=== PATIENT | female | born 1960 | race Caucasian/White ===

== ENCOUNTER 2021-08-11 12:50 | Emergency (ER) | payer OTHER ==
[2021-08-11] MEDS ORDERED: Sodium Chloride 0.9% 10 ML Syringe FLUSH PRN (12:52)
[2021-08-11] MEDS ORDERED: Sodium Chloride 0.9% 2.5 ML Syringe FLUSH PRN (12:52)
[2021-08-11] MEDS ORDERED: Sodium Chloride 0.9% 1,000 ML IV ONE (14:45)
[2021-08-11] MEDS ORDERED: Ondansetron 4 MG/2 ML SDV IVPUSH ONE (14:45)
[2021-08-11 15:25] LABS: BLOOD UREA NITROGEN,BUN 8 mg/dL (7.0-18.0); CARBON DIOXIDE,CO2 24.7 mmol/L (21.0-32.0); CHLORIDE,CL 101 mmol/L (98-107); GLUCOSE RANDOM 118 mg/dL (74-106); LIPASE 124 U/L (73-393); POTASSIUM,K 3.7 mmol/L (3.5-5.1); SODIUM,NA 138 mmol/L (136-145)
[2021-08-11] MEDS ORDERED: Tetracaine HCl/PF 0.5% 4 ML Bottle EYERT ONE (15:30)
[2021-08-11] MEDS ORDERED: Morphine 2 MG/ML SYRINGE IVPUSH ONE (15:39)
[2021-08-11] MEDS ORDERED: Erythromycin Base 0.5% Ophth Oint 1 GM Tube EYERT ONE (15:40)
== END 2021-08-11 17:30 | disposition home or self-care (01) ==
LOC: MW.ED 12:50
DX: S05.01XA Injury of conjunctiva and corneal abrasion without foreign body, right eye, initial encounter (principal); K52.9 Noninfective gastroenteritis and colitis, unspecified; Z20.822 Contact with and (suspected) exposure to COVID-19; W22.8XXA Striking against or struck by other objects, initial encounter
CPT/HCPCS: 36415; 80053; 81001; 83690; 85025; 87635; 87804; 96374; 96375; 99284; A9270; J2270; J2405; J7030; U0002

== ENCOUNTER 2021-08-18 09:36 | Inpatient (IN) | payer OTHER ==
[2021-08-18] MEDS ORDERED: Ondansetron 4 MG/2 ML SDV IVPUSH ONE (09:51)
[2021-08-18] MEDS ORDERED: Sodium Chloride 0.9% 1,000 ML IV SCH (10:00)
[2021-08-18] MEDS ORDERED: Sodium Chloride 0.9% 1,000 ML IV STA (10:02)
[2021-08-18] MEDS ORDERED: fentaNYL 50 MCG/ML SDV IVPUSH ONE ×2 (10:47→13:21)
[2021-08-18 11:01] LABS: BLOOD UREA NITROGEN,BUN 11 mg/dL (7.0-18.0); CARBON DIOXIDE,CO2 28.3 mmol/L (21.0-32.0); CHLORIDE,CL 100 mmol/L (98-107); GLUCOSE RANDOM 100 mg/dL (74-106); LIPASE 138 U/L (73-393); POTASSIUM,K 3.9 mmol/L (3.5-5.1); SODIUM,NA 139 mmol/L (136-145)
[2021-08-18] MEDS ORDERED: Iopamidol 755 MG/ML 500 ML Multipack Bottle IVPUSH STA (11:56)
[2021-08-18] MEDS ORDERED: Diatrizoate Meglumine/Diatrizoate Sodium 37% 30 ML Bottle PO ONE (13:44)
[2021-08-18] MEDS ORDERED: Piperacillin/Tazobactam 4.5 GM in Sodium Chloride 0.9% 100 ML IV ONE (17:32)
[2021-08-18] MEDS ORDERED: Bupivacaine 25%/EPINEPHrine/PF 30 ML ONE (18:32)
[2021-08-18] MEDS ORDERED: Octyl 2-Cyanoacrylate 1 Tube ONE (18:32)
[2021-08-18] MEDS ORDERED: Gentamicin 420 MG in Sodium Chloride 0.9% 100 ML IV ONE (18:45)
[2021-08-18] MEDS ORDERED: Propofol 200 MG/20 ML SDV ONE (19:54)
[2021-08-18] MEDS ORDERED: fentaNYL 250 MCG/5 ML SDV ONE ×2 (19:54→20:27)
[2021-08-18] MEDS ORDERED: fentaNYL 100 MCG/2 ML SDV ONE ×3 (19:55→21:01)
[2021-08-18] MEDS ORDERED: Ketamine 500 mg/10 ML MDV ONE (20:41)
[2021-08-18] MEDS ORDERED: Naloxone 0.4 MG/ML SDV IVPUSH PRN (21:20)
[2021-08-18] MEDS ORDERED: fentaNYL 100 MCG/2 ML SDV IVPUSH PRN (21:20)
[2021-08-18] MEDS ORDERED: Ondansetron 4 MG/2 ML SDV IVPUSH PRN (21:20)
[2021-08-18] MEDS ORDERED: Morphine 4 MG/ML VIAL IVPUSH PRN (21:20)
[2021-08-18] MEDS ORDERED: Metoclopramide 10 MG/2 ML SDV IVPUSH PRN (21:20)
[2021-08-18] MEDS ORDERED: Rocuronium Bromide 50 MG/5 ML Syringe ONE ×2 (22:00→23:25)
[2021-08-18] MEDS ORDERED: HYDROmorphone 2 MG/ML Syringe ONE (23:33)
[2021-08-19] MEDS ORDERED: HYDROmorphone 2 MG/ML Syringe ONE (00:03)
[2021-08-19] MEDS ORDERED: Naloxone 0.4 MG/ML SDV IVPUSH PRN (00:22)
[2021-08-19] MEDS ORDERED: Piperacillin/Tazobactam 3.375 GM in Sodium Chloride 0.9% 50 ML IV SCH (00:30)
[2021-08-19] MEDS ORDERED: Lactated Ringers 1,000 ML IV SCH (00:30)
[2021-08-19] MEDS: HYDROmorphone 1 MG/ML Syringe IVPUSH PRN ×2 (00:35→00:45)
[2021-08-19] MEDS ORDERED: Morphine Sulfate in 0.9 % NaCl 50 MG/50 ML PCA Bag IV SCH (00:40)
[2021-08-19 02:07] LABS: BLOOD UREA NITROGEN,BUN 8 mg/dL (7.0-18.0); CARBON DIOXIDE,CO2 24.7 mmol/L (21.0-32.0); CHLORIDE,CL 104 mmol/L (98-107); GLUCOSE RANDOM 168 mg/dL (74-106); POTASSIUM,K 3.9 mmol/L (3.5-5.1); SODIUM,NA 139 mmol/L (136-145)
[2021-08-19] MEDS: Lactated Ringers 1,000 ML IV SCH ×3 (03:29→21:09)
[2021-08-19] MEDS: Ondansetron 4 MG/2 ML SDV IVPUSH PRN (04:20)
[2021-08-19] MEDS: Piperacillin/Tazobactam 3.375 GM in Sodium Chloride 0.9% 50 ML IV SCH ×3 (08:22→20:23)
[2021-08-19] MEDS: Pantoprazole 40 MG in Sodium Chloride 0.9% 10 ML IVPUSH SCH (08:23)
[2021-08-19] MEDS: Morphine Sulfate in 0.9 % NaCl 50 MG/50 ML PCA Bag IV SCH (12:51)
[2021-08-20] MEDS: Piperacillin/Tazobactam 3.375 GM in Sodium Chloride 0.9% 50 ML IV SCH ×4 (02:19→20:41)
[2021-08-20] MEDS: Lactated Ringers 1,000 ML IV SCH ×3 (05:11→15:33)
[2021-08-20] MEDS ORDERED: Morphine 2 MG/ML SYRINGE IVPUSH PRN (06:37)
[2021-08-20] MEDS: Morphine Sulfate in 0.9 % NaCl 50 MG/50 ML PCA Bag IV SCH (07:29)
[2021-08-20 07:48] LABS: BLOOD UREA NITROGEN,BUN 6 mg/dL (7.0-18.0); CARBON DIOXIDE,CO2 27.1 mmol/L (21.0-32.0); CHLORIDE,CL 102 mmol/L (98-107); GLUCOSE RANDOM 109 mg/dL (74-106); POTASSIUM,K 3.7 mmol/L (3.5-5.1); SODIUM,NA 138 mmol/L (136-145)
[2021-08-20] MEDS: Pantoprazole 40 MG in Sodium Chloride 0.9% 10 ML IVPUSH SCH (08:56)
[2021-08-20] MEDS: Ondansetron 4 MG/2 ML SDV IVPUSH PRN ×2 (15:16→22:16)
[2021-08-20] MEDS ORDERED: Morphine Sulfate in 0.9 % NaCl 50 MG/50 ML PCA Bag IV SCH (17:45)
[2021-08-21] MEDS: Piperacillin/Tazobactam 3.375 GM in Sodium Chloride 0.9% 50 ML IV SCH ×4 (01:50→20:20)
[2021-08-21] MEDS: Lactated Ringers 1,000 ML IV SCH (06:59)
[2021-08-21 07:59] LABS: BLOOD UREA NITROGEN,BUN 7 mg/dL (7.0-18.0); CARBON DIOXIDE,CO2 23.8 mmol/L (21.0-32.0); CHLORIDE,CL 100 mmol/L (98-107); GLUCOSE RANDOM 128 mg/dL (74-106); POTASSIUM,K 3.7 mmol/L (3.5-5.1); SODIUM,NA 139 mmol/L (136-145)
[2021-08-21] MEDS: Pantoprazole 40 MG in Sodium Chloride 0.9% 10 ML IVPUSH SCH (08:05)
[2021-08-21] MEDS: Ondansetron 4 MG/2 ML SDV IVPUSH PRN ×2 (08:05→16:40)
[2021-08-22] MEDS: Gabapentin 300 MG Cap PO SCH ×5 (00:31→23:38)
[2021-08-22] MEDS: Ondansetron 4 MG/2 ML SDV IVPUSH PRN ×3 (00:40→14:54)
[2021-08-22] MEDS: Piperacillin/Tazobactam 3.375 GM in Sodium Chloride 0.9% 50 ML IV SCH ×4 (01:34→19:55)
[2021-08-22] MEDS: Lactated Ringers 1,000 ML IV SCH ×2 (04:50→21:15)
[2021-08-22] MEDS ORDERED: Metoclopramide 10 MG Tab PO PRN (10:00)
[2021-08-22] MEDS ORDERED: Docusate Sodium 100 MG Cap PO PRN (10:00)
[2021-08-22] MEDS ORDERED: Lactated Ringers 1,000 ML IV SCH (13:00)
[2021-08-22] MEDS ORDERED: Acetaminophen/oxyCODONE 325-5 MG Tab PO PRN (13:01)
[2021-08-22] MEDS: Pantoprazole 40 MG in Sodium Chloride 0.9% 10 ML IVPUSH SCH (13:44)
[2021-08-22] MEDS: Simethicone 80 MG Tab.Chew PO PRN ×2 (14:54→21:27)
[2021-08-22 16:13] LABS: BLOOD UREA NITROGEN,BUN 7 mg/dL (7.0-18.0); CARBON DIOXIDE,CO2 29.4 mmol/L (21.0-32.0); CHLORIDE,CL 101 mmol/L (98-107); GLUCOSE RANDOM 127 mg/dL (74-106); POTASSIUM,K 3.3 mmol/L (3.5-5.1); SODIUM,NA 137 mmol/L (136-145)
[2021-08-22] MEDS: Metoclopramide 10 MG Tab PO PRN (17:26)
[2021-08-23] MEDS: Piperacillin/Tazobactam 3.375 GM in Sodium Chloride 0.9% 50 ML IV SCH ×2 (01:44→08:07)
[2021-08-23] MEDS: Ondansetron 4 MG/2 ML SDV IVPUSH PRN ×2 (05:00→12:13)
[2021-08-23] MEDS: Gabapentin 300 MG Cap PO SCH ×2 (06:46→12:11)
[2021-08-23] MEDS: Simethicone 80 MG Tab.Chew PO PRN (08:06)
[2021-08-23] MEDS: Pantoprazole 40 MG in Sodium Chloride 0.9% 10 ML IVPUSH SCH (08:07)
[2021-08-23 09:13] LABS: BLOOD UREA NITROGEN,BUN 7 mg/dL (7.0-18.0); CARBON DIOXIDE,CO2 28.5 mmol/L (21.0-32.0); CHLORIDE,CL 100 mmol/L (98-107); GLUCOSE RANDOM 116 mg/dL (74-106); POTASSIUM,K 3.6 mmol/L (3.5-5.1); SODIUM,NA 141 mmol/L (136-145)
[2021-08-23] MEDS: Lactated Ringers 1,000 ML IV SCH (11:17)
[2021-08-23] MEDS: Metoclopramide 10 MG Tab PO PRN (12:12)
== END 2021-08-23 12:35 | DRG 340 ==
LOC: MW.ED 09:36 → MW.MS 17:33 → MW.SDS 17:33 → MW.ED 19:10 → MW.MS 08-19 00:12 → MW.SDS 08-19 00:12
PROVIDERS: ADMIT Surgery; ATTEND Surgery
PROC: 0DTJ0ZZ Resection of Appendix, Open Approach (ICD-10-PCS; principal; 2021-08-19)
PROC: 0WJG4ZZ Inspection of Peritoneal Cavity, Percutaneous Endoscopic Approach (ICD-10-PCS; 2021-08-19)
DX: K35.33 Acute appendicitis with perforation, localized peritonitis, and gangrene, with abscess (principal); E78.00 Pure hypercholesterolemia, unspecified; Z90.49 Acquired absence of other specified parts of digestive tract; Z96.659 Presence of unspecified artificial knee joint; Z20.822 Contact with and (suspected) exposure to COVID-19
CPT/HCPCS: 00840; 36415; 71045; 71045-26; 74018; 74018-26; 74176; 74176-26; 74177; 74177-26; 80053; 80170; 81003; 83690; 85025; 93005; 96365; 96375; 96376; 99285-25; A9270-GY; C9113; J0131; J1170; J1580; J2270; J2405; J2543; J2704; J3010; J7030; J7120; Q9963; Q9967; U0002

== ENCOUNTER 2024-08-07 17:01 | Emergency (ER) | payer BC, OTHER ==
[2024-08-07] MEDS: Diphtheria,Pertussis(Acell),Tetanus Vaccine 0.5 ML Syringe IM ONE (18:32)
== END 2024-08-07 19:14 | disposition home or self-care (01) ==
LOC: MW.ED 17:01
DX: S61.253A Open bite of left middle finger without damage to nail, initial encounter (principal); E78.00 Pure hypercholesterolemia, unspecified; Z86.16 Personal history of COVID-19; Z79.899 Other long term (current) drug therapy; Z75.8 Other problems related to medical facilities and other health care; Z23 Encounter for immunization; W55.01XA Bitten by cat, initial encounter
CPT/HCPCS: 90471; 90715; 99283; 99283-25

== ENCOUNTER 2024-08-28 18:48 | Emergency (ER) | payer MEDICARE, OTHER ==
[2024-08-28 19:11] LABS: BASOPHILS ABSOLUTE AUTO 0.05 K/uL (0.00-0.20); BASOPHILS PERCENT AUTO 0.5 % (0.0-1.0); EOSINOPHILS ABSOLUTE AUTO 0.06 K/uL (0.00-0.45); EOSINOPHILS PERCENT AUTO 0.7 % (0.0-6.0); HEMATOCRIT 43.8 % (37.0-47.0); HEMOGLOBIN 14.8 g/dL (12.0-16.0); IMMATURE GRAN ABSOLUTE AUTO 0.03 K/uL (0.00-0.05); IMMATURE GRAN PERCENT AUTO 0.3 % (0.0-0.4); LYMPHOCYTES ABSOLUTE AUTO 2.98 K/uL (1.00-4.80); LYMPHOCYTES PERCENT AUTO 32.5 % (24.0-44.0); MEAN CORPUSCULAR HEMOGLOBIN 30.2 pg (28.0-32.0); MEAN CORPUSCULAR HGB CONC 33.8 g/dL (32.0-36.0); MEAN CORPUSCULAR VOLUME 89.4 fL (83.0-99.0); MEAN PLATELET VOLUME 11.7 fL (9.4-12.3); MONOCYTES ABSOLUTE AUTO 0.62 K/uL (0.00-0.80); MONOCYTES PERCENT AUTO 6.8 % (0.0-8.0); NEUTROPHILS ABSOLUTE AUTO 5.42 K/uL (1.80-7.70); NEUTROPHILS PERCENT AUTO 59.2 % (41.0-71.0); PLATELET COUNT,PLT 200 K/uL (150-400); WHITE BLOOD CELL COUNT,WBC 9.16 K/uL (3.9-11.3)
[2024-08-28] MEDS: Aspirin 81 MG Tab.Chew PO ONE (19:15)
[2024-08-28 19:38] LABS: A/G RATIO 1.2 (0.9-1.6); BILIRUBIN TOTAL 0.6 mg/dL (0.2-1.0); CALCIUM 9.1 mg/dL (8.5-10.1); CARBON DIOXIDE,CO2 23.9 mmol/L (21.0-32.0); CREATININE 1.5 mg/dL (0.6-1.0); EST CRCL DRUG DOSING (CG) 39.08 mL/min; POTASSIUM,K 3.6 mmol/L (3.5-5.1); PROTEIN TOTAL,TP 7.4 g/dL (6.4-8.2)
== END 2024-08-28 22:00 ==
LOC: MW.ED 18:48
DX: I44.2 Atrioventricular block, complete (principal); R55 Syncope and collapse; R00.2 Palpitations; R79.89 Other specified abnormal findings of blood chemistry; I25.2 Old myocardial infarction; Z79.899 Other long term (current) drug therapy; Z90.49 Acquired absence of other specified parts of digestive tract
CPT/HCPCS: 36415; 71045; 80053; 83690; 83735; 83880; 84484; 85025; 93005; 99285; A9270

== ENCOUNTER 2024-08-30 21:44 | Emergency (ER) | payer MEDICARE, OTHER ==
[2024-08-30] MEDS: Aspirin 81 MG Tab.Chew PO ONE (22:15)
[2024-08-30] MEDS: Ondansetron 4 MG/2 ML SDV IVPUSH ONE (22:15)
[2024-08-30] MEDS: Morphine 4 MG/ML Syringe IVPUSH PRN (22:16)
[2024-08-30 22:28] LABS: BASOPHILS ABSOLUTE AUTO 0.03 K/uL (0.00-0.20); BASOPHILS PERCENT AUTO 0.4 % (0.0-1.0); EOSINOPHILS ABSOLUTE AUTO 0.09 K/uL (0.00-0.45); EOSINOPHILS PERCENT AUTO 1.3 % (0.0-6.0); HEMATOCRIT 44.1 % (37.0-47.0); HEMOGLOBIN 14.9 g/dL (12.0-16.0); IMMATURE GRAN ABSOLUTE AUTO 0.02 K/uL (0.00-0.05); IMMATURE GRAN PERCENT AUTO 0.3 % (0.0-0.4); LYMPHOCYTES ABSOLUTE AUTO 1.73 K/uL (1.00-4.80); LYMPHOCYTES PERCENT AUTO 24.7 % (24.0-44.0); MEAN CORPUSCULAR HEMOGLOBIN 30.5 pg (28.0-32.0); MEAN CORPUSCULAR HGB CONC 33.8 g/dL (32.0-36.0); MEAN CORPUSCULAR VOLUME 90.4 fL (83.0-99.0); MEAN PLATELET VOLUME 11.5 fL (9.4-12.3); MONOCYTES ABSOLUTE AUTO 0.52 K/uL (0.00-0.80); MONOCYTES PERCENT AUTO 7.4 % (0.0-8.0); NEUTROPHILS ABSOLUTE AUTO 4.61 K/uL (1.80-7.70); NEUTROPHILS PERCENT AUTO 65.9 % (41.0-71.0); PLATELET COUNT,PLT 142 K/uL (150-400); RED BLOOD CELL COUNT 4.88 M/uL (4.10-5.30)
[2024-08-30 22:41] LABS: INR 1.12 (0.86-1.11)
[2024-08-30] MEDS: HYDROmorphone 0.5 MG/0.5 ML Syringe IVPUSH PRN (22:58)
[2024-08-30 23:07] LABS: A/G RATIO 1.1 (0.9-1.6); ALBUMIN 3.8 g/dL (3.4-5.0); BILIRUBIN TOTAL 0.9 mg/dL (0.2-1.0); CALCIUM 8.9 mg/dL (8.5-10.1); CARBON DIOXIDE,CO2 25.2 mmol/L (21.0-32.0); CREATININE 0.8 mg/dL (0.6-1.0); EST CRCL DRUG DOSING (CG) 73.27 mL/min; MAGNESIUM 2.1 mg/dL (1.8-2.4); POTASSIUM,K 4.4 mmol/L (3.5-5.1); PROTEIN TOTAL,TP 7.3 g/dL (6.4-8.2)
[2024-08-31] MEDS: Ketorolac 30 MG/ML SDV IVPUSH ONE (02:09)
[2024-08-31] MEDS: Acetaminophen/oxyCODONE 325-5 MG Tab PO ONE (03:13)
== END 2024-08-31 03:19 | disposition home or self-care (01) ==
LOC: MW.ED 21:44
DX: G89.18 Other acute postprocedural pain (principal); R07.9 Chest pain, unspecified; R79.89 Other specified abnormal findings of blood chemistry; Z95.0 Presence of cardiac pacemaker; Z90.49 Acquired absence of other specified parts of digestive tract; Z79.899 Other long term (current) drug therapy
CPT/HCPCS: 36415; 71045; 80053; 83690; 83735; 83880; 84484; 85025; 85610; 93005; 96374; 96375; 99285; A9270; J1100; J1885; J2270; J2405; 93010